=== PATIENT | female | born 1995 | race Caucasian/White ===

== ENCOUNTER 2017-10-29 12:36 | Outpatient (CLI) | payer OTHER ==
--- NOTE | 2017-10-29 15:55 | MRI Report ---
MRI BRAIN WITHOUT CONTRAST INDICATION: 22-year-old female with change in chronic headache pattern. The patient's mother had a br ain tumor. Unenhanced brain MRI has been requested. TECHNIQUE: 1. Sagittal T1 and coronal fat saturated T2. 2. Axial T1 3-D, FLAIR, T2, T2* and DWI. COMPARISON: None. FINDINGS: Ventricular size is normal. Signal intensity of the cortex and white matter is normal throughout. The cerebellar tonsils are low-lying and project into the foramen magnum. However, there is no descen t below the plane of the foramen magnum to suggest the possibility of a Chiari I malformation. Flow voids are demonstrated in the main intracranial arteries. No abnormal diffusion restriction is d emonstrated. No evidence of acute or chronic hemorrhage on T2*GRE sequence. No abnormal extraaxial fl uid collection. No mass effect or midline shift. Limited assessment of the orbits reveals no gross pathology. There is minor mucosal thickening in a few ethmoid air cells. The paranasal sinuses are otherwise juan jose ar. No mastoid or middle ear effusion. Marrow signal intensity in the regional skeletal structures is unremarkable. IMPRESSION: Normal unenhanced brain MRI. Referring Provider Line: [phone] SITE ID: [id number]
== END 2017-10-29 12:37 | disposition home or self-care (01) ==
LOC: DI 12:36
PROVIDERS: ATTEND Family Medicine
DX: G43.909 Migraine, unspecified, not intractable, without status migrainosus (principal)
CPT/HCPCS: 70551

== ENCOUNTER 2019-04-12 08:00 | Outpatient (CLI) | payer OTHER | END 2019-04-12 08:01 | disposition home or self-care (01) | LOC: LAB.R 08:00 | PROVIDERS: ATTEND Obstetrics & Gynecology | DX: Z34.83 Encounter for supervision of other normal pregnancy, third trimester (principal) | CPT/HCPCS: 87797 ==

== ENCOUNTER 2019-04-29 11:43 | Outpatient (CLI) | payer OTHER ==
--- NOTE | 2019-05-02 12:31 | Ultrasound Report ---
Reason: SMALL FOR GESTATIONAL AGE FETUS, SUPERVISION Procedure Date: 04/29/2019 Accession Number: [id number] / [id number] Procedure: US - OB F/U or Repeat CPT Code: FULL RESULT: EXAM: LIMITED OBSTETRICAL ULTRASOUND EXAM DATE: 04/29/2019 12:43 PM. CLINICAL HISTORY: SMALL FOR GESTATIONAL AGE FETUS, SUPERVISION. COMPARISON: None. TECHNIQUE: Real-time sonographic evaluation of the fetus performed by the bulk plant agent. Multiple patient care representative static images were saved for review. DATING: Established EGA 39 weeks 6 days with PRETTY 04/30/2019 based on provided information. GENERAL EVALUATION Lyn . Cardiac activity: 132 bpm. movement: Present. Presentation: Cephalic. Placenta: Right lateral position. Amniotic fluid: Normal. SUZE 13 cm. MVP 5.4 cm. BIOMETRICS: Biparietal diameter 8.5 cm, 34 weeks 3 days Head circumference 31.1 cm, 34 weeks 6 days Abdominal circumference 33.2 cm, 37 weeks 1 day Femur length 7.5 cm, 38 weeks 1 day Age by composite ultrasound measurements today 36 weeks 1 day, PRETTY 05/25/2019. Estimated weight 3026 g, 11th percentile for 39 weeks 6 days IMPRESSION: 1. Lyn intrauterine with gestational age 39 weeks 6 days based on LMP. 2. SUZE 13 cm. 3. Estimated weight 11th percentile for 39 weeks 6 days. RADIA
== END 2019-04-29 11:44 | disposition home or self-care (01) ==
LOC: DI 11:43
PROVIDERS: ATTEND Obstetrics & Gynecology
DX: O36.5930 Maternal care for other known or suspected poor fetal growth, third trimester, not applicable or unspecified (principal); Z3A.39 39 weeks gestation of pregnancy
CPT/HCPCS: 76816

== ENCOUNTER 2019-05-01 01:52 | Inpatient (IN) | payer OTHER ==
[2019-05-01 02:40] LABS: RUPTURE OF MEMBRANES PLUS POSITIVE (NEGATIVE)
[2019-05-01] MEDS ORDERED: AMPICILLIN 2 GM in SODIUM CHLORIDE 0.9% MINIBAG 100 ML IV ONE (03:17)
[2019-05-01] MEDS ORDERED: LACTATED RINGERS 1,000 ML IV SCH ×2 (04:00→10:00)
[2019-05-01] MEDS ORDERED: AMPICILLIN 1 GM in SODIUM CHLORIDE 0.9% MINIBAG 100 ML IV SCH (04:00)
[2019-05-01] MEDS ORDERED: miSOPROStol 100 MCG TABLET BC SCH (04:00)
[2019-05-01] MEDS ORDERED: LACTATED RINGERS 1,000 ML IV ONE (04:13)
[2019-05-01 04:34] LABS: BASOPHILS # (AUTO) 0.1 10^3/uL (0.0-0.1); BASOPHILS % (AUTO) 0.5 %; EOSINOPHILS # (AUTO) 0.1 10^3/uL (0.0-0.7); HGB - HEMOGLOBIN 11.3 g/dL (12.0-16.0); LYMPHOCYTES % (AUTO) 24.1 %; MEAN CORPUSCULAR HEMOGLOBIN 28.8 pg (27.0-31.0); MEAN CORPUSCULAR HGB CONC 32.4 g/dL (32.0-36.0); MEAN PLATELET VOLUME 12.5 fL (7.9-10.8); MONOCYTES # (AUTO) 0.7 10^3/uL (0.0-1.0); MONOCYTES % (AUTO) 5.4 %; NEUTROPHILS # (AUTO) 8.4 10^3/uL (1.5-6.6); NEUTROPHILS % (AUTO) 68.2 %; PLT - PLATELET COUNT 178 10^3/uL (130-450); RED BLOOD COUNT 3.92 10^6/uL (4.20-5.40); RED CELL DISTRIBUTION WIDTH 13.4 % (12.0-15.0); WHITE BLOOD COUNT 12.3 x10^3/uL (4.8-10.8)
--- NOTE | 2019-05-01 04:45 | HISTORY & PHYSICAL EXAMINATION ---
Admit History - Visit Reason Visit Reason: Membranes rupture - : 2 Parity: 1 Premature: 0 Ectopic: 0 : 0 Care: positive: Aroldo Risk/History: positive: None. negative: Other Smoking Status: Never smoker - Mother's Labs Mother's Blood Type: positive: A Mother's RH: positive: Negative (Rhogam on 02/16/2019) GBS: positive: Group B Strep Positive Rubella Status: positive: Immune Meds/Allgy - Allergies Allergies/Adverse Reactions: Allergies Allergy/AdvReac Type Severity Reaction Status Date / Time No Known Drug Allergies Allergy Verified 05/01/19 03:23 Review of Systems - Constitutional Constitutional: denies: Fatigue, Fever, Chills, Malaise, Weakness, Poor appetite - Eyes Eyes: denies: Pain, Irritation, Amaurosis, Blurred vision, Spots in vision - Ears, Nose & Throat Ears, Nose & Throat: denies: Ear pain, Hearing loss, Hearing aids, Tinnitus, Vertigo, Dentures, Sore throat, Hoarseness, Mouth lesions - Cardiovascular Cariovascular: denies: Irregular heart rate, Palpitations, Chest pain, Edema, Lightheadedness, Syncope, Exertional dyspnea - Respiratory Respiratory: denies: Cough, Sputum production, Wheezing, Snoring, Hemoptysis, Orthopnea - Gastrointestinal Gastrointestinal: denies: Abdominal pain, Abdominal distention, Diarrhea, Black stools, Nausea, Vomiting - Genitourinary Genitourinary: denies: Dysuria, Urgency, Hematuria, Incontinence, Flank pain, Urethral discharge - Musculoskeletal Musculoskeletal: denies: Muscle pain, Muscle aches, Stiffness, Limited range of motion, Muscle weakness, Gout, Joint pain - Integumentary Integumentary: denies: Rash, Pruritis, Lesions, Dryness, Lumps - Neurological Neurological: denies: General weakness, Focal weakness, Headache, Dizziness, Numbness, Memory problems, Seizures - Psychiatric Psychiatric: denies: Depression, Anxiety, Suicidal, Delusions, Hallucinations - Endocrine Endocrine: denies: Polyuria, Polydypsia, Polyphagia, Intolerance to cold, Intolerance to heat - Hematologic/Lymphatic Hematologic/Lymphatic: denies: Anemia, Bruising, Petechiae, Blood clots, Lymphadenopathy, Bleeding tendencies Physical - Abdominal Exam Vital Signs: Temp Pulse Resp BP Pulse Ox 36.3 C L 90 16 112/68 97 05/01/19 04:27 05/01/19 04:27 05/01/19 04:27 05/01/19 04:27 05/01/19 04:27 Contraction Frequency (min/apart): 30 Contraction Intensity: positive: Mild Uterine Resting Tone: positive: Soft - Monitoring Strip Review: positive: Category I - Presentation Presentation: positive: Vertex - Vaginal Exam Membranes: positive: Membranes ruptured Dilation (in cm): 1 Effacement (%): 50 Station: positive: -3 Cervical Position: positive: Posterior Plan for Labor - Plan For Labor I expect patient to be DC'd or transferred within 96 hours.: Yes Plan for Labor: Impression: Prom at 40 1/7 weeks Plan: The patient is admitted for induction of labor. We will stasrt with misoprostil to ripen her cervix and hopefully star her labor. Since sge is GBS positive we will start prophylactic antibiotics. Her blood type is A negative and she may need Rhogam in the period.
[2019-05-01] MEDS ORDERED: OXYTOCIN/DEXTROSE 5 % 30 UNIT/500 ML BAG IV ONE (04:58)
[2019-05-01] MEDS ORDERED: ROPIVACAINE 0.2% 200 MG/100 ML BAG EP ONE (06:30)
[2019-05-01] MEDS ORDERED: ROPIVACAINE 0.2% PF 20 ML AMPULE ONE (06:49)
[2019-05-01] MEDS ORDERED: fentaNYL 100 MCG/2 ML VIAL ONE (06:49)
[2019-05-01] MEDS ORDERED: diphenhydrAMINE INJ 50 MG/ML VIAL IVP PRN (07:16)
[2019-05-01] MEDS ORDERED: ROPIVACAINE 0.2% 200 MG/100 ML BAG EP PRN (07:16)
[2019-05-01] MEDS ORDERED: METOCLOPRAMIDE 10 MG/2 ML VIAL IVP PRN (07:16)
[2019-05-01] MEDS ORDERED: LACTATED RINGERS 500 ML IV ONE (07:16)
[2019-05-01] MEDS ORDERED: ONDANSETRON 4 MG/2 ML VIAL IVP PRN (07:16)
[2019-05-01] MEDS ORDERED: NALOXONE 0.4 MG/ML VIAL IVP PRN (07:16)
[2019-05-01] MEDS ORDERED: ePHEDrine 50 MG/ML VIAL IVP PRN (07:16)
[2019-05-01] MEDS ORDERED: NALBUPHINE 10 MG/ML AMP IVP PRN (07:16)
--- NOTE | 2019-05-01 07:19 | ANESTHESIA ---
Pre-Anesthesia VS, & Labs - Diagnosis term labor, IUP - Procedure vaginal delivery Vital Signs: Temp Pulse Resp BP Pulse Ox 36.3 C L 90 16 112/68 97 05/01/19 04:27 05/01/19 04:27 05/01/19 04:27 05/01/19 04:27 05/01/19 04:27 Height 5 ft 4 in Weight (kg) 92.079 kg - NPO Last Fluid Intake: t/o noc Last Food Intake: >8 - Is Patient ?: Yes - Lab Results Current Lab Results: Laboratory Tests 05/01/19 04:20: WBC 12.3 H, RBC 3.92 L, Hgb 11.3 L, Hct 34.9 L, MCV 89.0, MCH 28.8, MCHC 32.4, RDW 13.4, Plt Count 178, MPV 12.5 H, Neut # (Auto) 8.4 H, Lymph # (Auto) 3.0, [place] # (Auto) 0.7, Eos # (Auto) 0.1, Baso # (Auto) 0.1, Absolute Nucleated RBC 0.00, Nucleated RBC % 0.0 Lab results reviewed: Yes Fish Bones: 05/01/19 04:20 Home Medications and Allergies Active Medications Ampicillin Sodium 1 gm/ Sodium (Chloride) 100 mls @ 200 mls/hr IV Q4H [facility] Lactated Ringer's (Lr) 1,000 mls @ 150 mls/hr IV .Q6H40M [facility] Last Admin: 05/01/19 04:29 Dose: 150 mls/hr Misoprostol (Cytotec) 50 mcg BC Q4H [facility] Last Admin: 05/01/19 04:47 Dose: 50 mcg Sodium Chloride (Normal Saline Flush 0.9%) 10 ml IVP PRN PRN PRN Reason: NEEDED PER PROVIDER ORDERS Sodium Chloride (Normal Saline Flush 0.9%) 10 ml IVP 0100,0900,1700 [facility] Allergies/Adverse Reactions: Allergies Allergy/AdvReac Type Severity Reaction Status Date / Time No Known Drug Allergies Allergy Verified 05/01/19 03:23 Anes History & Medical History - Anesthetic History Anesthesia Complications: reports: No previous complications Family history of Anesthesia Complications: Denies Family history of Malignant Hyperthermia: Denies - Medical History Smoking Status: Never smoker - Obstetrical History : 2 Parity: 1 Events: positive: None. negative: Other Exam General: Alert, Oriented x3, Cooperative Dental: WNL Mouth Openin Fingerbreadth Neck Mobility: Normal Mallampati classification: II Thyromental Distance: 4-6 cm Respiratory: No respiratory distress Cardiovascular: Regular rate Neurological: Normal speech Mental/Cognitive Status: Alert/Oriented X3, Normal for patient Cognitive Status: Within normal limits Plan Anesthesia Type: Epidural Consent for Procedure(s) Verified and Reviewed: Yes Code Status: Attempt Resuscitation ASA classification: 2-Mild systemic disease Is this case an emergency?: No
[2019-05-01] MEDS: SODIUM CHLORIDE FLUSH 0.9% 10 ML SYRINGE IVP SCH ×3 (08:04→20:49)
[2019-05-01] MEDS ORDERED: LIDOCAINE MPF 2%-EPI 1:200000 20 ML VIAL ONE (09:04)
[2019-05-01] MEDS ORDERED: OXYTOCIN/DEXTROSE 5 % 30 UNIT/500 ML BAG IV PRN (09:09)
[2019-05-01] MEDS ORDERED: HYDROcod/ACETAM 5/325 MG TABLET PO PRN (09:09)
--- NOTE | 2019-05-01 09:21 | DELIVERY NOTE ---
Delivery Note - Infant Delivery Method Infant Delivery Method: positive: Spontaneous vaginal delivery - Cervical Ripening Method Cervical Ripening Method: positive: Misoprostil - Presentation Presentation: positive: Vertex, SIDNEY - left occiput anterior - Nuchal Cord Nuchal Cord: positive: Present (Tight and was divided prior to delivery because it could not be safely reduced) - Anesthetic Anesthetic: positive: Lidocaine - 1% plain Volume: positive: 5cc - Amniotic Fluid Description Amniotic Fluid Description: positive: Clear - Episiotomy Type Episiotomy Type: positive: None - Laceration Laceration: positive: 1st degree - Suture Suture Type: positive: Chromic Suture Size: positive: 2-0 - Delivery Outcome Delivery Outcome: positive: Livebirth - [place]: positive: Placed in direct skin contact with mother sex: positive: Female : Apgars 8 and 9 - Cord Cord: positive: 3 vessels - Placenta Placenta: positive: Intact, Spontaneous - Estimated Blood Loss Estimated Blood Loss (in cc): 200 - Delivery Comments (Free Text/Narrative) Delivery Comments (Free Text/Narrative): The patient reached complete with respect to cervical dilatation at 0813 hrs. Her however had gone to [place] and was called back. She did have an epidural in place and therefore pushing was delayed until he arrived.At approximately 08 40 she began to push. She delivered a viable female over a first-degree perineal laceration approximately 0847 hrs. A tight circumnuchal cord was unable to be reduced and was therefore divided prior to delivery. Once divided the rest of the was delivered with gentle traction and gentle expulsatory efforts. The was then placed on the mothers chest. A sample of the cord blood was obtained and sent for evaluation. The placenta was delivered intact with 3 vessels at 0847hrs. 30 units of Pitocin IV were delivered. The uterus was kenny down firmly. The cervix and vaginal vault were inspected and found to be intact. The 1st degree laceration was infiltrated with 1% Lidocaine and repaired with 2-O Chromic in the usual fashion. Lochia was light. The is a viable female with Apgars of 8 and 9. Both the and the patient were allowed to stay in the LDRP in stable condition. EBL 200ml.
[2019-05-01] MEDS ORDERED: LIDOCAINE-MPF 1% 30 ML VIAL ONE (10:36)
[2019-05-01] MEDS: IBUPROFEN 600 MG TABLET PO SCH ×3 (10:54→23:01)
[2019-05-01] MEDS ORDERED: RHO(D) IMMUNE GLOBULIN 300 MCG SYRINGE IVP ONE (15:05)
[2019-05-01] MEDS: ACETAMINOPHEN 500 MG TABLET PO SCH (17:12)
[2019-05-01] MEDS: SODIUM CHLORIDE FLUSH 0.9% 10 ML SYRINGE IVP PRN (23:02)
[2019-05-02] MEDS: ACETAMINOPHEN 500 MG TABLET PO SCH ×2 (01:16→16:14)
[2019-05-02] MEDS: IBUPROFEN 600 MG TABLET PO SCH ×2 (05:08→13:57)
[2019-05-02] MEDS: SODIUM CHLORIDE FLUSH 0.9% 10 ML SYRINGE IVP PRN (05:15)
--- NOTE | 2019-05-02 07:08 | PROVIDER PROGRESS NOTE ---
Subjective - Prog Note Date Prog Note Date: 05/02/19 Prog Note Time: 07:06 - Subjective Subjective: The patient continues to do well. She is without complaint today. She is ambulating well and tolerating diet well. She is voiding without difficulty. She is breast-feeding without difficulty. She would like to be discharged home today. Lochia is light. She still wishes her tubal ligation done today. We therefore discussed the risks, benefits, alternatives and complications of a mini laparotomy with bilateral partial salpingectomy. Questions were encouraged and answered she understood verbal consent was again given. She did sign a hospital consent in the office. Objective - Vital Signs/Intake & Output Vital Signs: Vital Signs x48h Temp Pulse Resp BP 05/02/19 02:00 36.5 C 81 17 119/69 Intake & Output: Intake & Output 04/29/19 04/30/19 05/01/19 05/02/19 23:59 23:59 23:59 23:59 Intake Total 1700 16.667 Output Total 700 Balance 1000 16.667 - Objective Abdomen: positive: Non-tender (The uterus is firm and nontender 2 fingerbreadths below the umbilicus.), Nml bowel sounds - Lab Results Fish Bones: 05/01/19 04:20 Other Labs: Lab Results x24hrs 05/01/19 Range/Units 12:59 Blood Type A NEGATIVE Weak D (Du) WEAK-D NEGATIVE Maternal Bleed NEGATIVE (NEGATIVE) Assessment/Plan - Problem List (1) Normal delivery at term Impression: We will proceed with the tubal ligation today. The patient is anticipated to be discharged home tomorrow.
--- NOTE | 2019-05-02 07:24 | ANESTHESIA ---
Pre-Anesthesia VS, & Labs - Diagnosis desires sterilization - Procedure tubal ligation Vital Signs: Temp Pulse Resp BP Pulse Ox 36.5 C 81 17 119/69 99 05/02/19 02:00 05/02/19 02:00 05/02/19 02:00 05/02/19 02:00 05/01/19 16:00 Height 5 ft 4 in Weight (kg) 92.079 kg - NPO >8 hours - Is Patient ?: No - Lab Results Current Lab Results: Laboratory Tests 05/01/19 12:59: Blood Type A NEGATIVE, Weak D (Du) WEAK-D NEGATIVE, Maternal Bleed NEGATIVE 05/01/19 04:20: WBC 12.3 H, RBC 3.92 L, Hgb 11.3 L, Hct 34.9 L, MCV 89.0, MCH 28.8, MCHC 32.4, RDW 13.4, Plt Count 178, MPV 12.5 H, Neut # (Auto) 8.4 H, Lymph # (Auto) 3.0, [place] # (Auto) 0.7, Eos # (Auto) 0.1, Baso # (Auto) 0.1, Absolute Nucleated RBC 0.00, Nucleated RBC % 0.0 Lab results reviewed: Yes Fish Bones: 05/01/19 04:20 Home Medications and Allergies Active Medications Acetaminophen (Tylenol) 1,000 mg PO Q8H [facility] Last Admin: 05/02/19 01:16 Dose: 1,000 mg Hydrocodone Bitart/Acetaminophen ([place] 5/325) 1 tab PO Q4HR PRN PRN Reason: PAIN Diphenhydramine HCl (Benadryl Inj) 12.5 - 25 mg IVP Q6HR PRN PRN Reason: ITCHING Ephedrine Sulfate () 5 mg IVP Q5M PRN PRN Reason: For SBP<100;give until SBP>100 Ampicillin Sodium 1 gm/ Sodium (Chloride) 100 mls @ 200 mls/hr IV Q4H [facility] Last Infusion: 05/01/19 08:40 Dose: Infused Lactated Ringer's (Lr) 1,000 mls @ 150 mls/hr IV .Q6H40M [facility] Last Infusion: 05/01/19 09:30 Dose: Infused Ropivacaine (Naropin 0.2%) 200 mg in 100 mls @ 0 mls/hr EP PRN PRN; Protocol PRN Reason: PAIN Lactated Ringer's (Lr) 1,000 mls @ 100 mls/hr IV .Q10H [facility] Last Infusion: 05/02/19 07:03 Dose: 999 mls/hr OXYTOCIN/DEXTROSE 5 % (Pitocin/Dextrose 5%) 30 unit in 500 mls @ 999 mls/hr IV PRN PRN; Protocol PRN Reason: POST- HEMORR PREVENTION Last Admin: 05/01/19 08:55 Dose: 999 milliunit/min, 999 mls/hr Ibuprofen (Motrin) 600 mg PO Q6H [facility] Last Admin: 05/02/19 05:08 Dose: 600 mg Metoclopramide HCl (Reglan Inj) 10 mg IVP Q6HR PRN PRN Reason: Nausea / Vomiting Misoprostol (Cytotec) 50 mcg BC Q4H [facility] Last Admin: 05/01/19 04:47 Dose: 50 mcg Nalbuphine HCl (Nubain) 2.5 - 5 mg IVP Q4H PRN PRN Reason: ITCHING Naloxone HCl (Narcan) 0.1 mg IVP Q2M PRN PRN Reason: RR<8 Ondansetron HCl (Zofran Inj) 4 mg IVP Q6HR PRN PRN Reason: Nausea / Vomiting Last Admin: 05/01/19 08:03 Dose: 4 mg Sodium Chloride (Normal Saline Flush 0.9%) 10 ml IVP PRN PRN PRN Reason: NEEDED PER PROVIDER ORDERS Last Admin: 05/02/19 05:15 Dose: 10 ml Sodium Chloride (Normal Saline Flush 0.9%) 10 ml IVP 0100,0900,1700 [facility] Last Admin: 05/01/19 20:49 Dose: 10 ml Allergies/Adverse Reactions: Allergies Allergy/AdvReac Type Severity Reaction Status Date / Time No Known Drug Allergies Allergy Verified 05/01/19 03:23 Anes History & Medical History - Anesthetic History Anesthesia Complications: reports: No previous complications Family history of Anesthesia Complications: Denies Family history of Malignant Hyperthermia: Denies - Medical History Smoking Status: Never smoker - Obstetrical History : 2 Parity: 1 Events: positive: None. negative: Other Exam General: Alert, Oriented x3, Cooperative Dental: WNL Mouth Openin Fingerbreadth Neck Mobility: Normal Mallampati classification: II Thyromental Distance: 4-6 cm Respiratory: Lungs clear, Normal breath sounds Cardiovascular: Regular rate Neurological: Normal speech Mental/Cognitive Status: Alert/Oriented X3, Normal for patient Cognitive Status: Within normal limits Plan Anesthesia Type: General Consent for Procedure(s) Verified and Reviewed: Yes Code Status: Attempt Resuscitation ASA classification: 2-Mild systemic disease Is this case an emergency?: No
[2019-05-02] MEDS ORDERED: BUPIVACAINE 0.5% PF 30 ML VIAL ONE (07:28)
[2019-05-02] MEDS ORDERED: BUPIVACAINE 0.5%-EPI 1:200000 PF 30 ML VIAL SUBQ ONE ×2 (08:02)
[2019-05-02] MEDS ORDERED: LACTATED RINGERS 1,000 ML IV ONE (08:04)
[2019-05-02] MEDS ORDERED: BUPIVACAINE 0.5%-EPI 1:200000 PF 30 ML VIAL ONE (08:11)
--- NOTE | 2019-05-02 09:41 | OPERATIVE REPORT ---
DATE OF SERVICE: 05/02/2019 Physician: Chris Perry DO PREOPERATIVE DIAGNOSIS: Voluntary request for sterilization. POSTOPERATIVE DIAGNOSIS: Voluntary request for sterilization. PROCEDURE PERFORMED: mini-laparotomy with bilateral salpingectomy. SURGEON: Chris Perry DO RECRUITING SPECIALIST: None. ANESTHESIA: General. ESTIMATED BLOOD LOSS: 2 mL WOUND CLASSIFICATION: I. COUNTS: Sponge count, needle count were correct. Further clinical history, please see H and P. SURGICAL FINDINGS: The fallopian tubes bilaterally were both unremarkable. PROCEDURE: Patient was taken to the operative suite, placed on the surgical table in supine position. Under general anesthesia, she was prepped and draped in the usual fashion. A timeout then took place. Once the timeout was complete, infraumbilical fold was anesthetized with 0.5% Marcaine with epinephrine. An incision was then made in the infraumbilical fold. [place] retractors were then used to dissect the tissue to the level of the fascia. The fascia was then incised laterally. [place] retractors were then used to dissect down through the preperitoneal fat to the level of the peritoneum. The peritoneum was then incised. The [place] retractors were then used to enter the abdomen and give visualization. The patient was placed in slight Trendelenburg. The bowel was packed off with a surgical tape sponge. The attention was then placed to the left fallopian tube and left fallopian tube was identified, followed to its fimbriated end. It was then completely removed using the LigaSure device. The mesosalpinx was sequentially coagulated and divided to the level of the cornu and then the tube was removed at the cornu of the left side of the uterus. This was sent to pathology for evaluation. The fundus of the uterus was then followed to the right cornu. The right fallopian tube was then identified, followed to its fimbriated end. This tube also was then dissected free from the mesosalpinx using the LigaSure device. This was dissected to the level of the cornu and then transected at the cornu. The right fallopian tube was now sent to pathology for evaluation. Hemostasis followed on both sides. The taped sponge was then removed. The fascia was then reapproximated using 0 Vicryl suture in a running interlocking fashion. The skin was closed using 4-0 Monocryl suture in a running subcuticular fashion and hemostasis followed. Steri-Strips were placed, and a sterile dressing was placed, and patient was taken to recovery room in stable condition. TD: 05/02/2019 08:53 VIDAL
[2019-05-02 16:19] VITALS: BP 102/55
[2019-05-02] MEDS ORDERED: NEOSTIGMINE 1 MG/1 ML 10 ML MDV IVP ONE (16:45)
[2019-05-02] MEDS ORDERED: GLYCOPYRROLATE 1 MG/5 ML VIAL IVP ONE (16:45)
[2019-05-02] MEDS ORDERED: PROPOFOL 200 MG/20 ML VIAL IVP ONE (16:45)
[2019-05-02] MEDS ORDERED: MIDAZOLAM 2 MG/2 ML VIAL IVP ONE (16:45)
[2019-05-02] MEDS ORDERED: ROCURONIUM 50 MG/5 ML VIAL IVP ONE (16:45)
[2019-05-02] MEDS ORDERED: DEXAMETHASONE 4 MG/ML VIAL IVP ONE (16:45)
--- NOTE | 2019-05-02 19:11 | PROVIDER PROGRESS NOTE ---
Subjective - Prog Note Date Prog Note Date: 05/02/19 Prog Note Time: 19:09 - Subjective Subjective: Josephine is doing quite well postop day #0 s/p PPBTL and PPD#1 s/p Feeling well and wants to go home. Up and ambulating, tolerating po, pain is well managed with po pain meds. Minimal use of pain medications. Bottle feedig only. Objective - Vital Signs/Intake & Output Reviewed Vital Signs: Yes Vital Signs: Vital Signs x48h Temp Pulse Resp BP Pulse Ox 05/02/19 16:00 98.1 F 67 16 102/55 L 98 05/02/19 12:30 88 16 108/66 97 05/02/19 11:15 65 16 101/61 97 Intake & Output: Intake & Output 04/29/19 04/30/19 05/01/19 05/02/19 23:59 23:59 23:59 23:59 Intake Total 1700 1000.000 Output Total 700 Balance 1000 1000.000 - Objective General Appearance: positive: No acute distress Neck: positive: Nml inspection Respiratory: positive: Chest non-tender, No respiratory distress Cardiovascular: positive: Regular rate & rhythm Abdomen: positive: Non-tender, No distention, Other (soft, and non-tender. FF below umbi) Skin: positive: Color nml Extremities: positive: Non-tender Neurologic/Psychiatric: positive: Oriented x3 - Lab Results Fish Bones: 05/01/19 04:20 Assessment/Plan - Problem List (1) Normal delivery at term Impression: Doing well PPD#1 and POD#0 s/p and PPBTL Desires discharge to home Observed for 12 hours post op. No concerns and benign abd exam. Reviewed warning signs and discharge instructions. Not ; declines lacation support visit. Discharge to home FU in 6 weeks
--- NOTE | 2019-05-02 19:32 | DISCHARGE SUMMARY ---
"Discharge Summary Discharge Date: 05/02/19 Discharging Provider: MD Damaris Code Status: Attempt Resuscitation Condition at Discharge: Good - DIAGNOSES Admission Diagnoses: Spontaneous rupture of membranes at 40w1d ega Desires permanent sterilization Discharge Diagnoses with Status of Each Condition: Same and delivery of term gestation S/p bilateral tubal ligation - [facility] History of Present Illness: Ms Cross is a 23 yo at 40w1d ega who presented with spontaneous rupture of membranes. Initial SVE was 50/-3. Admitted for induction of labor. GBS positive. Blood type A negative. Desires sterilization. - CONSULTS | PROCEDURES Procedures: Spontaneous vaginal delivery bilateral tubal ligation - HOSPITAL COURSE Hospital Course: Received misprostol 50 mcg x1. Ampicillin for GBS prophylaxis adminsitered x2 doses. The patient reached complete with respect to cervical dilatation at 0813 hrs. She did have an epidural in place and therefore pushing was delayed until arrived.At approximately 08 40 she began to push. She delivered a viable female over a first-degree perineal laceration approximately 0847 hrs. A tight circumnuchal cord was unable to be reduced and was therefore divided prior to delivery. Once divided the rest of the was delivered with gentle traction and gentle expulsatory efforts. The was then placed on the mothers chest. A sample of the cord blood was obtained and sent for evaluation. The placenta was delivered intact with 3 vessels at 0847hrs. 30 units of Pitocin IV were delivered. The uterus was kenny down firmly. The cervix and vaginal vault were inspected and found to be intact. The 1st degree laceration was infiltrated with 1% Lidocaine and repaired with 2-O Chromic in the usual fashion. Lochia was light. The is a viable female with Apgars of 8 and 9. Both the and the patient were allowed to stay in the LDRP in stable condition. EBL 200m On PPD#1, patient underwent a bialterla tubal ligation under general anesthesia. She was observed for 12 hours after surgery. She was doing well without minimal useof pain medications. Requested discharge to home. Warning signs reviewed and discharge instructions given. Administration of Rhogam confirmed prior to discharge. - ALLERGIES Allergies/Adverse Reactions: Allergies Allergy/AdvReac Type Severity Reaction Status Date / Time No Known Drug Allergies Allergy Verified 05/01/19 03:23 - LABS Result Diagrams: 05/01/19 04:20 - FOLLOW UP Follow Up: FU in 6 weeks at [facility] - TIME SPENT Time Spent in Discharge (Minutes): 30"
--- NOTE | 2019-05-02 21:01 | Labor Flowsheet ---
Labor Flowsheet Datetime Report Generated by CPN: 05/02/2019 21:00 Datetime: 05/01/2019 16:00 VITAL SIGNS NBP Sys/Destinee/Mean (mmHg): 118 : 76 : 84 Pulse: 82 SpO2 (%): 99 LaborFlag: Labor Datetime: 05/01/2019 08:47 UTERINE ACTIVITY Monitor Mode: External Frequency (min): 2-4 Quality: Moderate Duration (sec): 60-70 Pattern: Normal: <= 5 Contractions in 10 Minutes Resting Tone (Palpate): Relaxed ASSESSMENT A Monitor Mode: External US FHR Baseline Rate : 125 Variability: Moderate 6-25 bpm Accelerations: 15X15 Decelerations: Early; Variable Category: Category II PATIENT CARE Oxygen Method: Room Air Datetime: 05/01/2019 08:45 Pushing Position: Pushing with Contractions Pushing Progress: Descent with Pushing Datetime: 05/01/2019 08:39 Station: 2 Exam by: dr osiris COMMUNICATION Communication: Provider at Bedside Communication Comments: dr osiris Datetime: 05/01/2019 08:30 STAGE 2 Pushing: No Urge to Push Stage 2 Comments: on his way, dr osiris in house Datetime: 05/01/2019 08:28 Respirations: 15 Temperature (C): 36.6 Datetime: 05/01/2019 08:13 VAGINAL EXAM Dilatation (cm): 10.0 Effacement (%): 100 Vaginal Bleeding: Normal Show Cervix, Consistency: Soft Cervix, Position: Anterior Datetime: 05/01/2019 07:45 FHR Baseline Changes: No Baseline Change Datetime: 05/01/2019 07:36 PAIN Pain Scale: 0 Pain Coping: Talking Through Contractions Pain Assessment Comments: epidural in place ANESTHESIA Anesthesia Level Check: T9 Datetime: 05/01/2019 07:30 Actions for Decelerations: Side to Side Datetime: 05/01/2019 07:28 Patient Position/Activity: Right Tilt
== END 2019-05-02 19:45 | disposition home or self-care (01) | DRG 798 ==
LOC: WFO 01:52 → FBP 01:53 → WFO 02:59 → UNDOADMIN 03:00 → FBP 03:00
PROVIDERS: ADMIT Obstetrics & Gynecology; ATTEND Obstetrics & Gynecology
PROC: 10E0XZZ Delivery of Products of Conception, External Approach (ICD-10-PCS; principal; 2019-05-01)
PROC: 0HQ9XZZ Repair Perineum Skin, External Approach (ICD-10-PCS; 2019-05-01)
PROC: 0UB70ZZ Excision of Bilateral Fallopian Tubes, Open Approach (ICD-10-PCS; 2019-05-02)
DX: O42.02 Full-term premature rupture of membranes, onset of labor within 24 hours of rupture (principal); Z37.0 Single live birth; O99.824 Streptococcus B carrier state complicating childbirth; O69.1XX0 Labor and delivery complicated by cord around neck, with compression, not applicable or unspecified; O70.0 First degree perineal laceration during delivery; O26.893 Other specified pregnancy related conditions, third trimester; Z67.11 Type A blood, Rh negative; Z30.2 Encounter for sterilization; Z3A.40 40 weeks gestation of pregnancy
CPT/HCPCS: 83033; 84112; 85025; 86900; 86901; 99213; A9270; J7120

== ENCOUNTER 2019-05-06 06:47 | Observation (INO) | payer OTHER ==
--- NOTE | 2019-05-06 07:08 | ED Physician Documentation ---
History of Present Illness - Stated complaint Stated Complaint: NAUSEA/CHILLS - Chief complaint Chief Complaint: Fever - Additonal information Additional information: This is a 23-year-old female who had a vaginal delivery 5 days ago along with a tubal ligation with Dr. Rodriguez, who presents with a fever since yesterday. Patient states she had a fever of 101 F, and she had some chills and nausea as well. She also has had some leakage of milk from her breasts. She denies any redness of her breasts. She has some mild lower abdominal discomfort which has been relatively stable since her delivery, maybe slightly worsened today. She continues to have a small amount of bleeding, but states this has been decreasing since the delivery. No other discharge, no foul-smelling discharge. She denies diarrhea, vomiting, runny nose, sore throat, or coughing. She took Tylenol and Motrin this morning at 5:40 AM, but she continues to feel poorly. Review of Systems Constitutional: reports: Fever Eyes: denies: Loss of vision Ears: denies: Loss of hearing Nose: denies: Rhinorrhea / runny nose Cardiac: denies: Chest pain / pressure Respiratory: denies: Dyspnea GI: reports: Nausea : denies: Dysuria Skin: denies: Rash Neurologic: reports: Generalized weakness PD PAST MEDICAL HISTORY - Past Medical History Past Medical History: Yes Cardiovascular: None Respiratory: Asthma Neuro: None Endocrine/Autoimmune: None GI: None INFORMATION SECURITY MANAGER: None : None HEENT: None Psych: None Musculoskeletal: None Derm: None - Past Surgical History Past Surgical History: Yes /INFORMATION SECURITY MANAGER: Tubal ligation - Present Medications Home Medications: Ambulatory Orders Medication Instructions Recorded Confirmed Pnv95/Ferrous Fumarate/FA 1 tab PO DAILY 05/06/19 05/06/19 [ Vitamins Tablet] - Allergies Allergies/Adverse Reactions: Allergies Allergy/AdvReac Type Severity Reaction Status Date / Time No Known Drug Allergies Allergy Verified 05/06/19 06:58 - Social History Does the pt smoke?: No Smoking Status: Never smoker Does the pt drink ETOH?: Yes Does the pt have substance abuse?: No - Immunizations Immunizations are current?: Yes - POLST Patient has POLST: No PD ED PE NORMAL - Vitals Vital signs reviewed: Yes - General General: Alert and oriented X 3 - HEENT HEENT: PERRL - Neck Neck: Supple, no meningeal sign - Cardiac Cardiac: Other (tachycardic, regular rhythm) - Respiratory Respiratory: Clear bilaterally - Abdomen Abdomen: Other (Soft, mild suprapubic tenderness, otherwise nontender to palpation.) - Female Female : Other (Breast exam chaperoned by ANNALISE Miguel: Breasts are normal in appearance without redness or induration, small amount of fluid leaking from the nipples bilaterally.) - Derm Derm: Warm and dry - Extremities Extremities: No deformity - Neuro Neuro: Alert and oriented X 3 - Psych Psych: Normal mood, Normal affect Results - Vitals Vitals: Vital Signs - 24 hr 05/06/19 05/06/19 05/06/19 06:54 07:27 09:14 Temperature 37.3 C 36.7 C Heart Rate 122 H 88 75 Respiratory 17 18 16 Rate Blood Pressure 125/73 112/64 111/65 O2 Saturation 98 98 98 05/06/19 05/06/19 05/06/19 10:45 12:36 14:23 Temperature 37.5 C 37.8 C H 37.4 C Heart Rate 72 86 61 Respiratory 16 16 12 Rate Blood Pressure 128/77 141/75 H 107/57 L O2 Saturation 100 100 98 Oxygen O2 Source Room air - Labs Labs: Laboratory Tests 05/06/19 05/06/19 05/06/19 07:22 07:22 07:22 WBC 7.2 RBC 4.22 Hgb 12.0 Hct 37.5 MCV 88.9 MCH 28.4 MCHC 32.0 RDW 13.2 Plt Count 190 MPV 11.9 H Neut # (Auto) 6.0 Lymph # (Auto) 0.8 L [place] # (Auto) 0.3 Eos # (Auto) 0.0 Baso # (Auto) 0.0 Absolute Nucleated RBC 0.00 Nucleated RBC % 0.0 Sodium 138 Potassium 3.7 Chloride 105 Carbon Dioxide 22 Anion Gap 11.0 BUN 11 Creatinine 0.8 Estimated GFR (MDRD) 89 Glucose 105 H Lactic Acid 0.8 Calcium 8.9 Total Bilirubin 1.2 H AST 33 ALT 63 H Alkaline Phosphatase 124 H Total Protein 7.4 Albumin 3.3 Globulin 4.1 Albumin/Globulin Ratio 0.8 L Lipase 26 TSH Urine Color Urine Clarity Urine pH Ur Specific [place] Urine Protein Urine Glucose (UA) Urine Ketones Urine Occult Blood Urine Nitrite Urine Bilirubin Urine Urobilinogen Ur Leukocyte Esterase Urine RBC Urine WBC Ur Squamous Epith Cells Urine Bacteria Ur Microscopic Review Urine Culture Comments 05/06/19 05/06/19 05/06/19 07:22 08:55 13:05 WBC RBC Hgb Hct MCV MCH MCHC RDW Plt Count MPV Neut # (Auto) Lymph # (Auto) [place] # (Auto) Eos # (Auto) Baso # (Auto) Absolute Nucleated RBC Nucleated RBC % Sodium Potassium Chloride Carbon Dioxide Anion Gap BUN Creatinine Estimated GFR (MDRD) Glucose Lactic Acid Calcium Total Bilirubin AST ALT Alkaline Phosphatase Total Protein Albumin Globulin Albumin/Globulin Ratio Lipase TSH 0.72 Urine Color YELLOW YELLOW Urine Clarity SL. CLOUDY CLEAR Urine pH 6.5 6.0 Ur Specific [place] 1.010 1.015 Urine Protein NEGATIVE NEGATIVE Urine Glucose (UA) NEGATIVE NEGATIVE Urine Ketones TRACE NEGATIVE Urine Occult Blood LARGE H NEGATIVE Urine Nitrite NEGATIVE NEGATIVE Urine Bilirubin NEGATIVE NEGATIVE Urine Urobilinogen 0.2 (NORMAL) 0.2 (NORMAL) Ur Leukocyte Esterase LARGE H NEGATIVE Urine RBC 11-25 H Urine WBC 11-25 H Ur Squamous Epith Cells MOD Squamous H Urine Bacteria Moderate H Ur Microscopic Review INDICATED NOT INDICATED Urine Culture Comments NOT INDICATED NOT INDICATED - Rads (name of study) Ultrasound pelvic Radiology: Other (Hypoechoic debris in the neck of the uterus.) PD MEDICAL DECISION MAKING - ED course Complexity details: considered differential (Endometritis, mastitis, URI, UTI, pyelonephritis, retained products/placenta) ED course: Patient presents with fever on post- day 5. Vitals notable for tachycardia and elevated temperature of 37.8. Labs are unremarkable other than extremely mild ALT elevation, she has no RUQ tenderness to suggest biliary pathology. Urine is contaminated, shows RBCs and WBCs. Straight catheter sample is clean. Patient has bilateral breast tenderness without redness, these appear engorged but without obvious mastitis on my exam. She has not been which would cause the engorgement. Pelvic US shows hypoechoic debris in the uterus, given the lack of another source I am concerned for endometritis. Dr. Garner of OB was consulted and promptly evaluated the patient. He admitted her, starting on antibiotics for mastitis vs endometritis. Patient was updated with the plan and agrees. Departure - Departure Disposition: ED Place in Observation Clinical Impression: Endometritis Discharge Date/Time: 05/06/19 15:52
[2019-05-06] MEDS ORDERED: SODIUM CHLORIDE 0.9% 1,000 ML IV ONE (07:09)
[2019-05-06] MEDS ORDERED: ONDANSETRON 4 MG/2 ML VIAL IVP STA (07:09)
[2019-05-06 07:37] LABS: BASOPHILS % (AUTO) 0.3 %; EOSINOPHILS % (AUTO) 0.4 %; LYMPHOCYTES # (AUTO) 0.8 10^3/uL (1.5-3.5); LYMPHOCYTES % (AUTO) 11.5 %; MEAN CORPUSCULAR HEMOGLOBIN 28.4 pg (27.0-31.0); MEAN CORPUSCULAR VOLUME 88.9 fL (81.0-99.0); MEAN PLATELET VOLUME 11.9 fL (7.9-10.8); MONOCYTES # (AUTO) 0.3 10^3/uL (0.0-1.0); MONOCYTES % (AUTO) 4.3 %; NEUTROPHILS % (AUTO) 83.1 %; PLT - PLATELET COUNT 190 10^3/uL (130-450); RED BLOOD COUNT 4.22 10^6/uL (4.20-5.40); RED CELL DISTRIBUTION WIDTH 13.2 % (12.0-15.0); WHITE BLOOD COUNT 7.2 x10^3/uL (4.8-10.8)
[2019-05-06 08:08] LABS: ALBUMIN 3.3 g/dL (3.2-5.5); ALBUMIN/GLOBULIN RATIO 0.8 (1.0-2.2); BILIRUBIN,TOTAL 1.2 mg/dL (0.2-1.0); CALCIUM 8.9 mg/dL (8.5-10.3); CREATININE 0.8 mg/dL (0.4-1.0); TOTAL PROTEIN 7.4 g/dL (6.7-8.2)
[2019-05-06] MEDS ORDERED: LACTATED RINGERS 1,000 ML IV STA (08:55)
[2019-05-06 09:10] LABS: BILIRUBIN,URINE NEGATIVE (NEGATIVE); GLUCOSE, URINE (UA) NEGATIVE (NEGATIVE); KETONES,URINE (UA) TRACE mg/dL (NEGATIVE); LEUKOCYTE ESTERASE, URINE LARGE (NEGATIVE); NITRITE,URINE NEGATIVE (NEGATIVE); OCCULT BLOOD,URINE LARGE (NEGATIVE); PH,URINE 6.5 PH (5.0-7.5); PROTEIN,URINE NEGATIVE (NEGATIVE); UROBILINOGEN,URINE 0.2 (NORMAL) E.U./dL (NORMAL)
[2019-05-06 09:18] LABS: CLARITY,URINE SL. CLOUDY (CLEAR)
[2019-05-06 09:30] LABS: BACTERIA,URINE Moderate /HPF (None Seen); SQUAMOUS EPITHELIAL CELL,UR MOD Squamous (<= Few)
--- NOTE | 2019-05-06 11:41 | Ultrasound Report ---
Reason: Post part fever, assess for retained products Procedure Date: 05/06/2019 Accession Number: [id number] / [id number] Procedure: US - Pelvic Complete CPT Code: FULL RESULT: EXAM: PELVIC ULTRASOUND EXAM DATE: 05/06/2019 10:00 AM. CLINICAL HISTORY: fever, assess for retained products. COMPARISON: None. TECHNIQUE: Realtime transabdominal pelvic scan performed to identify the uterus and adnexa and as an overview of other pelvic structures, followed by transvaginal scan to provide greater detail of the uterus and adnexa, with static image documentation. FINDINGS: Uterus: 22.0 x 5.3 x 11.6 cm, volume 707 cc. Anteverted position. Masses: No myometrial masses. Endometrium: 55 mm. There is an oblong collection of hypoechoic debris within the lower uterine segment. This is nonvascular. This is measured at 1.6 x 2.5 x 3.8 cm. Right Ovary: 2.8 x 1.1 x 2.1 cm, volume 3.3 cc. Normal echotexture and blood flow. Left Ovary: 2.1 x 1.3 x 2.2 cm, volume 3.1 cc. Normal echotexture and blood flow. Free Fluid: None. Other: None. IMPRESSION: Collection of nonvascular hypoechoic debris in the lower uterine segment, measuring 1.6 x 2.5 x 3.8 cm. RADIA ADDENDUM: 05/06/19 15:48 The endometrium measured 5.5 mm transversely.
[2019-05-06 13:10] LABS: BILIRUBIN,URINE NEGATIVE (NEGATIVE); GLUCOSE, URINE (UA) NEGATIVE (NEGATIVE); KETONES,URINE (UA) NEGATIVE (NEGATIVE); LEUKOCYTE ESTERASE, URINE NEGATIVE (NEGATIVE); NITRITE,URINE NEGATIVE (NEGATIVE); OCCULT BLOOD,URINE NEGATIVE (NEGATIVE); PROTEIN,URINE NEGATIVE (NEGATIVE); UROBILINOGEN,URINE 0.2 (NORMAL) E.U./dL (NORMAL)
[2019-05-06 13:13] LABS: CLARITY,URINE CLEAR (CLEAR)
[2019-05-06] MEDS ORDERED: IBUPROFEN 600 MG TABLET PO PRN (15:02)
[2019-05-06] MEDS ORDERED: ACETAMINOPHEN 325 MG TABLET PO PRN (15:02)
[2019-05-06] MEDS ORDERED: oxyCODONE 5 MG TABLET PO PRN (15:02)
[2019-05-06] MEDS ORDERED: SODIUM CHLORIDE FLUSH 0.9% 10 ML SYRINGE IVP PRN (15:02)
[2019-05-06] MEDS ORDERED: ONDANSETRON 4 MG/2 ML VIAL IVP PRN (15:02)
[2019-05-06] MEDS: AMPICILLIN/SULBACTAM 3 GM in SODIUM CHLORIDE 0.9% MINIBAG 100 ML IV SCH ×2 (16:13→23:11)
--- NOTE | 2019-05-06 17:04 | PREOP HISTORY & PHYSICAL ---
DATE OF SERVICE: 05/06/2019 Physician: Andrae Garner MD IDENTIFICATION: Patient is a 23-year-old G2, P2 female who delivered on 05/01/2019. CHIEF COMPLAINT: Chills, fevers, pelvic pain. HISTORY OF PRESENT ILLNESS: Patient states that last night, she developed pelvic pain as well as fevers of 38 degrees. She also has developed some breast pain and tenderness associated with this. She recently delivered on 05/01/2019 vaginally. She states the delivery was uncomplicated with a very short second stage. , she underwent a tubal ligation via the umbilicus. She has done well up until this point. She has elected not to breastfeed. The patient denies any foul-smelling vaginal discharge. PAST MEDICAL HISTORY: Patient denies any hypertensive, diabetic, cardiac, or pulmonary disease. PAST SURGICAL HISTORY: Positive for a tubal ligation. ALLERGIES: None known. CURRENT MEDICATIONS: vitamins. HABITS: Patient denies the use of tobacco, street, or addictive drugs. Drinks alcohol only occasionally. HABITS: Patient is [employer]. 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 FAMILY HISTORY: Negative for breast, ovarian, or cervical cancer. PHYSICAL EXAMINATION GENERAL: Well-developed, well-nourished white female. She is in mild distress at this time. VITAL SIGNS: Temperatures on admission were 38 degrees. Her blood pressures are running in the 112s to 141 over 60s, respiratory rate is 18-16. HEENT: Pupils are equal and round. Extraocular muscles are intact. Thyroid is not palpably enlarged. HEART: Regular rate and rhythm without murmurs. LUNGS: Lung young are clear without or rales or wheezes. BACK: No spinal or CVA tenderness noted. BREASTS: Breasts are warm to touch and mildly inflamed, but no evidence of any localizing lesions. They are warm to touch, very tense and filled. ABDOMEN: Exam shows a healed subumbilical scar. Suprapubically, she is tender. PELVIC: Speculum shows no foul-smelling vaginal discharge. The cervix appears to be normal. The uterus is tender duplicating the pain she is complaining of. CALF: No CVA tenderness noted. LABORATORY/DATA CBC which shows a white count of 7.2, hemoglobin was 12.0, platelets are 190. Chemistries are all within normal limits except for a mildly elevated glucose at 105. Ultrasound shows evidence of a fluid collection in the lower cervix, but this does not appear to be that of placental tissue. IMPRESSION 1. Five days status post with what appears to be endomyometritis without evidence of retained products of conception. 2. Mastitis, which very easily could be causing her temperatures. PLAN: At this point, we will obtain blood cultures, breast milk cultures, and we will start her on Unasyn as well as clindamycin. TD: 05/06/2019 15:32 VIDAL
[2019-05-06] MEDS: LACTATED RINGERS 1,000 ML IV SCH (17:13)
[2019-05-06] MEDS: SODIUM CHLORIDE FLUSH 0.9% 10 ML SYRINGE IVP SCH (18:59)
[2019-05-06] MEDS: CLINDAMYCIN 900 MG/50 ML 50 ML IV SCH (18:59)
[2019-05-06] MEDS: FAMOTIDINE 20 MG TABLET PO SCH (20:37)
[2019-05-07] MEDS: SODIUM CHLORIDE FLUSH 0.9% 10 ML SYRINGE IVP SCH ×3 (00:09→16:19)
[2019-05-07] MEDS: CLINDAMYCIN 900 MG/50 ML 50 ML IV SCH ×4 (01:00→18:50)
[2019-05-07] MEDS: AMPICILLIN/SULBACTAM 3 GM in SODIUM CHLORIDE 0.9% MINIBAG 100 ML IV SCH ×3 (05:19→21:07)
[2019-05-07] MEDS: LACTATED RINGERS 1,000 ML IV SCH ×3 (06:05→22:59)
[2019-05-07] MEDS: FAMOTIDINE 20 MG TABLET PO SCH ×2 (08:55→21:01)
[2019-05-07] MEDS: POLYETHYLENE GLYCOL 3350 17 GM PACKET PO SCH (08:55)
--- NOTE | 2019-05-07 11:28 | PROVIDER PROGRESS NOTE ---
Subjective - Prog Note Date Prog Note Date: 05/07/19 Prog Note Time: 11:19 - Subjective Pt reports feeling: Improved (Subjectively Pt feels improved. Lactating, not . breasts feel improved.) Objective - Vital Signs/Intake & Output Reviewed Vital Signs: Yes Vital Signs: Vital Signs x48h Temp Pulse Resp BP Pulse Ox 05/07/19 08:00 36.6 C 75 20 117/62 98 Intake & Output: Intake & Output 05/04/19 05/05/19 05/06/19 05/07/19 23:59 23:59 23:59 23:59 Intake Total 2350 1810 Balance 2350 1810 - Objective General Appearance: positive: No acute distress, Alert Respiratory: positive: Chest non-tender, No respiratory distress, Breath sounds nml Cardiovascular: positive: Regular rate & rhythm, No murmur, No gallop Abdomen: positive: Non-tender, No organomegaly, Nml bowel sounds, Tenderness (over the uterus.) Back: negative: CVA tenderness (R), CVA tenderness (L) Skin: positive: Color nml, No rash, Warm, Dry Extremities: negative: Calf tenderness, Levi's sign/cords Comments/Other: Breasts are lactating. they are firm but not as tense as yesterday. The erythema has resolved. - Lab Results Fish Bones: 05/06/19 07:22 05/06/19 07:22 Other Labs: Lab Results x24hrs 05/06/19 Range/Units 13:05 Urine Color YELLOW Urine Clarity CLEAR (CLEAR) Urine pH 6.0 (5.0-7.5) PH Ur Specific [place] 1.015 (1.002-1.030) Urine Protein NEGATIVE (NEGATIVE) mg/dL Urine Glucose (UA) NEGATIVE (NEGATIVE) mg/dL Urine Ketones NEGATIVE (NEGATIVE) mg/dL Urine Occult Blood NEGATIVE (NEGATIVE) Urine Nitrite NEGATIVE (NEGATIVE) Urine Bilirubin NEGATIVE (NEGATIVE) Urine Urobilinogen 0.2 (NORMAL) (NORMAL) E.U./dL Ur Leukocyte Esterase NEGATIVE (NEGATIVE) Ur Microscopic Review NOT INDICATED Urine Culture Comments NOT INDICATED Assessment/Plan - Problem List (1) Endometritis Impression: Pt is not quite 24 hours on antibiotics. single episode of temp. pt is ambulating and out of bed. pt to use tight sports bra and not stimulate nipples. not using suppression secondary to risk of stroke
[2019-05-08] MEDS: CLINDAMYCIN 900 MG/50 ML 50 ML IV SCH ×2 (00:14→05:45)
[2019-05-08] MEDS: SODIUM CHLORIDE FLUSH 0.9% 10 ML SYRINGE IVP SCH ×2 (01:43→08:50)
[2019-05-08] MEDS: AMPICILLIN/SULBACTAM 3 GM in SODIUM CHLORIDE 0.9% MINIBAG 100 ML IV SCH (05:00)
[2019-05-08 06:20] LABS: BASOPHILS % (AUTO) 0.7 %; EOSINOPHILS # (AUTO) 0.2 10^3/uL (0.0-0.7); EOSINOPHILS % (AUTO) 3.6 %; HGB - HEMOGLOBIN 10.1 g/dL (12.0-16.0); LYMPHOCYTES # (AUTO) 2.4 10^3/uL (1.5-3.5); LYMPHOCYTES % (AUTO) 39.1 %; MEAN CORPUSCULAR HEMOGLOBIN 27.4 pg (27.0-31.0); MEAN CORPUSCULAR HGB CONC 30.3 g/dL (32.0-36.0); MEAN CORPUSCULAR VOLUME 90.5 fL (81.0-99.0); MEAN PLATELET VOLUME 11.6 fL (7.9-10.8); MONOCYTES # (AUTO) 0.5 10^3/uL (0.0-1.0); MONOCYTES % (AUTO) 8.5 %; NEUTROPHILS # (AUTO) 2.9 10^3/uL (1.5-6.6); NEUTROPHILS % (AUTO) 47.6 %; PLT - PLATELET COUNT 147 10^3/uL (130-450); RED BLOOD COUNT 3.68 10^6/uL (4.20-5.40); RED CELL DISTRIBUTION WIDTH 13.4 % (12.0-15.0); WHITE BLOOD COUNT 6.1 x10^3/uL (4.8-10.8)
[2019-05-08 08:32] VITALS: BP 107/69
[2019-05-08] MEDS: FAMOTIDINE 20 MG TABLET PO SCH (08:50)
[2019-05-08] MEDS: POLYETHYLENE GLYCOL 3350 17 GM PACKET PO SCH (08:50)
--- NOTE | 2019-05-08 11:17 | PROVIDER PROGRESS NOTE ---
Subjective - Prog Note Date Prog Note Date: 05/08/19 Prog Note Time: 11:15 - Subjective Pt reports feeling: Improved (Pt states that her pain has completely resolved. still nipple .) Objective - Vital Signs/Intake & Output Reviewed Vital Signs: Yes Vital Signs: Vital Signs x48h Temp Pulse Resp BP Pulse Ox 05/08/19 08:31 37.3 C 68 16 107/69 98 05/08/19 05:10 36.6 C 66 16 113/67 98 Intake & Output: Intake & Output 05/05/19 05/06/19 05/07/19 05/08/19 23:59 23:59 23:59 23:59 Intake Total 2350 5071.667 1345 Balance 2350 5071.667 1345 - Objective General Appearance: positive: No acute distress, Alert Abdomen: positive: Non-tender, No organomegaly, Nml bowel sounds, Mass (uterus is nontender. arrises out of the pelvis at U-4) Comments/Other: breasts ate nonerythema, nontender, still firm. lactating. - Lab Results Fish Bones: 05/08/19 05:49 05/06/19 07:22 Other Labs: Lab Results x24hrs 05/08/19 Range/Units 05:49 WBC 6.1 (4.8-10.8) x10^3/uL RBC 3.68 L (4.20-5.40) 10^6/uL Hgb 10.1 L (12.0-16.0) g/dL Hct 33.3 L (37.0-47.0) % MCV 90.5 (81.0-99.0) fL MCH 27.4 (27.0-31.0) pg MCHC 30.3 L (32.0-36.0) g/dL RDW 13.4 (12.0-15.0) % Plt Count 147 (130-450) 10^3/uL MPV 11.6 H (7.9-10.8) fL Neut # (Auto) 2.9 (1.5-6.6) 10^3/uL Lymph # (Auto) 2.4 (1.5-3.5) 10^3/uL [place] # (Auto) 0.5 (0.0-1.0) 10^3/uL Eos # (Auto) 0.2 (0.0-0.7) 10^3/uL Baso # (Auto) 0.0 (0.0-0.1) 10^3/uL Absolute Nucleated RBC 0.00 x10^3/uL Nucleated RBC % 0.0 /100WBC Assessment/Plan - Problem List (1) Endometritis Impression: pelvic pain totally resolved. breasts doing well with temps of 39 doubt that her fever was from emgorgement. Discharge Meds: Clindamycin 300 mgQ6 for 3 more days Augmentin 500 bid for 3 mordays
--- NOTE | 2019-05-08 11:47 | Discharge Plan ---
Discharge Plan Problem Reviewed?: Yes Disposition: Home, Self Care Condition: Good Diet: Regular Activity Restrictions: No Restrictions Shower Restrictions: No Driving Restrictions: No Weight Bearing: Full Weight No Smoking: If you smoke, Please STOP! Call for help. Follow-up with: ASHLEY KHOURY MD [Primary Care Provider] -
== END 2019-05-08 11:45 | disposition home or self-care (01) ==
LOC: ED 06:47 → MS2 15:02
PROVIDERS: ADMIT Obstetrics & Gynecology; ATTEND Obstetrics & Gynecology
DX: O86.12 Endometritis following delivery (principal); O92.79 Other disorders of lactation; Z87.09 Personal history of other diseases of the respiratory system
CPT/HCPCS: 36415; 76856; 81001; 81003; 83605; 83690; 85025; 87040; 87070; 87205; 96361; 96365; 96366; 96367; 96375; 99284; 99285; A9270; G0378; J7120; 80053; 84443; 87086